=== PATIENT | female | born 1980 | race Caucasian/White ===

== ENCOUNTER → 2020-06-28 13:23 | Outpatient (CLI) | payer OTHER, SELFPAY ==
--- NOTE | ~2020-06-28 | MM_ITS ---
EXAMINATION: MM screening letitia BI w aguila HISTORY: Screening mammogram TECHNIQUE: Craniocaudal and mediolateral oblique 3-D tomosynthesis images were obtained and synthetic 2-D images were generated. CAD analysis was submitted and interpreted. COMPARISON: 06/17/2019 right diagnostic digital mammogram 06/06/2019 bilateral digital screening mammogram BREAST PARENCHYMAL COMPOSITION: The breasts are almost entirely fatty. FINDINGS: There is no evidence of suspicious mass, calcification, or architectural distortion to sugg est malignancy in either breast. There has been no suspicious interval change. IMPRESSION: 1. No mammographic evidence of malignancy. 2. Recommend routine screening mammography in one year. BI-RADS Category 1: Negative Reviewed, dictated and finalized at location A. PROCATING DRILL OPERATOR
== END ==
PROVIDERS: PCP Physician Assistant; Visit Provider Obstetrics & Gynecology
DX: Z12.31 Encounter for screening mammogram for malignant neoplasm of breast (principal)
CPT/HCPCS: 77063; 77067

== ENCOUNTER 2020-07-22 07:02 | Outpatient (NON) | payer OTHER, SELFPAY ==
[2020-07-22 22:01] LABS: SARS-CoV-2 RNA PCR Positive
== END 2020-07-22 07:03 ==
PROVIDERS: PCP Physician Assistant; Visit Provider Physician Assistant
DX: U07.1 COVID-19 (principal)
CPT/HCPCS: 87635; C9803; U0003

== ENCOUNTER → 2021-08-19 15:04 | Outpatient (CLI) | payer OTHER, SELFPAY ==
--- NOTE | ~2021-08-19 | CT_ITS ---
EXAMINATION: CT abdomen pelvis wo con DATE: 08/19/2021 15:21 INDICATION: Left flank pain TECHNIQUE: Computed tomography (CT) of the abdomen and pelvis was performed without intravenous contr ast. The dose-length product (DLP) was 1059.71 mGy-cm. Automated exposure control and iterative recon struction technique were employed. COMPARISON: 06/09/2019 FINDINGS: A calcified nodule of the left lower lobe is consistent with old granulomatous disease. Pun ctate calcifications in an otherwise normal spleen likely represent healed granulomatous disease. The gallbladder is surgically absent. The liver, pancreas, and adrenal glands are normal. The kidneys ar e unremarkable. No stones are identified in the kidneys, ureters, or bladder. There is no hydronephro sis or hydroureter. There is no free intraperitoneal gas or evidence of bowel obstruction. The append ix is normal. There is severe lumbar spondylosis at L5-S1. IMPRESSION: 1. No CT correlate for the patient's symptoms. No urolithiasis identified. Reviewed, dictated and finalized at location F. ACCEPTANCE TESTER
== END ==
PROVIDERS: PCP Physician Assistant; Visit Provider Physician Assistant
DX: R10.9 Unspecified abdominal pain (principal); M47.817 Spondylosis without myelopathy or radiculopathy, lumbosacral region
CPT/HCPCS: 74176

== ENCOUNTER 2023-07-10 12:27 | Emergency (ER) | payer OTHER, SELFPAY ==
--- NOTE | ~2023-07-10 | XR_ITS ---
EXAMINATION: XR chest 1V portable Exam Date/Time: 07/10/2023 19:19 CLOTHING WORKER HISTORY: palpitations Comparison: 12/03/2018. RESULT: Lines, tubes, and devices: None. Lungs and pleura: Clear. Cardiomediastinal silhouette: Stable. Other: No acute osseous or upper abdominal finding. IMPRESSION: No acute cardiopulmonary process. Reviewed, dictated and finalized at location K. HING WORKER
[2023-07-10 12:29] VITALS: BP 172/92; PULSE 90; RESP 16; TEMP 36.4; O2SAT 99
--- NOTE | 2023-07-10 12:30 | ECG_ITS ---
Measurements Intervals [place] Rate: 72 P: 55 ME: 140 QRS: 39 QRSD: 86 T: 41 QT: 393 QTc: 430 Interpretive Statements SINUS RHYTHM WITH MARKED RHYTHM IRREGULARITY, POSSIBLE NON-CONDUCTED PAC, SA BLOCK, AV BLOCK, OR SINUS PAUSE POSSIBLE LEFT ATRIAL ENLARGEMENT [-0.1mV P WAVE IN V1/V2] LOW QRS VOLTAGE IN PRECORDIAL LEADS [QRS DEFLECTION < 1.0 mV IN CHEST LEADS] ABNORMAL RHYTHM ECG COMPARED TO ECG 12/03/2018 20:52:17 NO SIGNIFICANT CHANGES Electronically Signed On 07-10-2023 13:37:32 [facility] NURSE PRACTITIONER by Shelly Stallings M.D.
[2023-07-10 14:45] VITALS: BP 150/88; PULSE 87; RESP 18; O2SAT 100
--- NOTE | 2023-07-10 14:59 | ED.GENADULT ---
HPI - General Adult General Chief complaint: Upper Respiratory Infection <KENYETTA Rai Last Filed: 07/10/23 15:18> Stated complaint: + Covid/heart skipping beat <KENYETTA Rai Last Filed: 07/10/23 15:18> Time Seen by Provider: 07/10/23 17:04 <KENYETTA Rai Last Filed: 07/10/23 15:18> Source: patient <KENYETTA Rai Last Filed: 07/10/23 15:18> Mode of arrival: ambulatory <KENYETTA Rai Last Filed: 07/10/23 15:18> Limitations: no limitations <KENYETTA Rai Last Filed: 07/10/23 15:18> History of Present Illness HPI narrative: Patient is a 43 y/o female who presents to the ED with c/o heart palpitations. Patient reports having URI sx's since last and had a positive home covid test on Sunday. She reports having a fluttering in her chest and into neck for the last 2 days. She states the palpitations were much more frequent today, occurring several times per minute. She notes she checked her radial pulse at that time and noted that she was skipping a beat each time the fluttering would occur. She then decided to be evaluated. Patient has had intermittent CP since her previous COVID infection 3 years ago. She has previously seen Dr. Yeager and had a negative stress test 6 months ago. Denies any current chest pain. Denies shortness of breath, [place], pleuritic pain. She notes she went to the gym today and did 30 minutes on the elliptical and did not feel short of breath or have CP at that time. No pain or swelling in legs. No dizziness/LH. No previous Hx of blood clots. <KENYETTA Rai Last Filed: 07/10/23 15:18> Patient is a 43 y/o female who presents to the ED with c/o heart palpitations. Patient reports having URI sx's since last (rhinorrhea and cough, no fevers) and had a positive home covid test on Sunday. She reports having a fluttering in her chest and into neck for the last 2 days. She states the palpitations were much more frequent today, occurring several times per minute. She notes she checked her radial pulse at that time and noted that she was skipping a beat each time the fluttering would occur. She then decided to be evaluated. Patient has had intermittent CP since her previous COVID infection 3 years ago. She has previously seen Dr. Yeager and had a negative stress test 6 months ago. Denies any current chest pain. Denies shortness of breath, [place], pleuritic pain. She notes she went to the gym today and did 30 minutes on the elliptical and did not feel short of breath or have CP at that time. No pain or swelling in legs. No dizziness/LH. No previous Hx of blood clots. She does note she has a history of anxiety at baseline and took 1/2 a Xanax with minimal change. Another home med is Buspar. She has also been taking ibuprofen. PCP Mary Garnica. <Lexi Urbina MD - Last Filed: 07/12/23 19:11> Related Data Allergies/adverse reactions: Allergies Allergy/AdvReac Type Severity Reaction Status Date / Time No Known Allergies Allergy Unverified 06/27/19 08:10 <Grace Wynne PA-C - Last Filed: 07/10/23 15:18> Review of Systems Review of Systems: CONSTITUTIONAL: Denies fever, chills, or sweats. ENT: See HPI. CARDIOVASCULAR: See HPI. RESPIRATORY: See HPI. GASTROINTESTINAL: Denies abdominal pain, nausea, vomiting, or diarrhea. MUSCULOSKELETAL: Denies back pain, joint pain, or myalgia. NEUROLOGIC: Denies headache, numbness, or weakness. <Grace Wynne PA-C - Last Filed: 07/10/23 15:18> All systems reviewed & are unremarkable except as noted in HPI and below <Grace Wynne PA-C - Last Filed: 07/10/23 15:18> [facility] Past Medical History Medical History: Medical History (Updated 07/12/23 @ 18:43 by Lexi Urbina MD) Anxiety COVID 2020 and July 2023 Palpitations <Grace Wynne PA-C - Last Filed:
[2023-07-10 15:21] LABS: Basophils Absolute Auto 0.1 K/mm3 (0.0-0.1); Basophils Percent Auto 0.7 % (0.2-1.2); Eosinophils Absolute Auto 0.6 K/mm3 (0-0.3); Eosinophils Percent Auto 7.7 % (0-4.4); Hematocrit 38.5 % (37.0-47.0); Hemoglobin 12.5 g/dL (12.0-15.0); Immature Granulocyte Absolute 0.04 K/mm3 (0.00-0.031); Immature Granulocyte Percent A 0.5 % (0-0.5); Lymphocytes Absolute Auto 1.55 K/mm3 (0.9-3.2); Lymphocytes Percent Auto 20.5 % (18.3-44.2); Mean Corpuscular HGB Conc 32.5 g/dl (32-36); Mean Corpuscular Hemoglobin 27.8 pg (26-34); Mean Corpuscular Volume 85.7 fl (80-100); Mean Platelet Volume 9.5 fl (7.4-10.4); Monocytes Absolute Auto 0.5 K/mm3 (0.1-0.6); Monocytes Percent Auto 6.2 % (2.6-8.5); Neutrophils Absolute Auto 4.9 K/mm3 (1.3-6.7); Neutrophils Percent Auto 64.4 % (45.5-73.1); Platelet Count Result 234 k/mm3 (150-375); Red Blood Count 4.49 M/mm3 (4.2-5.4); Red Cell Distribution Width 12.9 % (11.5-14.5); White Blood Count 7.6 K/mm3 (4.5-10.0)
[2023-07-10 15:51] LABS: Troponin I < 0.012 ng/mL (0.000-0.034)
[2023-07-10 16:19] LABS: Alanine Aminotransferase 24 U/L (6-35); Albumin Level 4.2 g/dL (3.5-5.1); Alkaline Phosphatase 81 U/L (38-126); Anion Gap 8 mmol/L (8-16); Aspartate Amino Transferase 24 U/L (14-36); Bilirubin,Total 0.5 mg/dL (0.2-1.3); Blood Urea Nitrogen 17 mg/dL (7-17); Calcium 9.1 mg/dL (8.4-10.2); Carbon Dioxide 26 mmol/L (22-30); Chloride 103 mmol/L (98-107); Estimated CRCL calculation 117 ml/min; Estimated Glomerular Filt Rate > 60; Glucose 97 mg/dL (65-110); Magnesium 1.9 mg/dL (1.6-2.3); Potassium 4.2 mmol/L (3.4-5.0); Sodium 137 mmol/L (137-145)
[2023-07-10 16:45] VITALS: BP 136/92; PULSE 66; RESP 17; O2SAT 100
[2023-07-10 17:31] VITALS: BP 148/100; PULSE 74; RESP 16; O2SAT 100
[2023-07-10 19:07] VITALS: BP 148/102; PULSE 88; RESP 24; TEMP 37; O2SAT 97
[2023-07-10 20:23] VITALS: BP 146/102; PULSE 72; RESP 16; TEMP 36.6; O2SAT 98
== END 2023-07-10 20:24 | disposition home or self-care (01) ==
PROVIDERS: Physician Assistant; Emergency Provider Student in an Organized Health Care Education/Training Program; PCP Physician Assistant
DX: I49.9 Cardiac arrhythmia, unspecified (principal); F41.9 Anxiety disorder, unspecified
CPT/HCPCS: 36415; 71045; 80053; 83735; 84484; 85025; 93005; 99284

== ENCOUNTER → 2023-07-26 10:23 | Outpatient (CLI) | payer OTHER, SELFPAY ==
--- NOTE | ~2023-07-26 | MM_ITS ---
EXAMINATION: MM screening letitia BI w aguila HISTORY: Screening mammogram TECHNIQUE: Craniocaudal and mediolateral oblique 3-D tomosynthesis images were obtained and synthetic 2-D images were generated. CAD analysis was submitted and interpreted. COMPARISON: 06/28/2020 bilateral screening mammogram 06/17/2019 diagnostic right mammogram 06/06/2019 bilateral screening mammogram BREAST PARENCHYMAL COMPOSITION: The breasts are almost entirely fatty. FINDINGS: There is no evidence of suspicious mass, calcification, or architectural distortion to sugg est malignancy in either breast. There has been no suspicious interval change. IMPRESSION: 1. No mammographic evidence of malignancy. 2. Recommend routine screening mammography in one year. BI-RADS Category 1: Negative Reviewed, dictated and finalized at location A. L CONCIERGE
== END ==
PROVIDERS: PCP Physician Assistant; Visit Provider Physician Assistant
DX: Z12.31 Encounter for screening mammogram for malignant neoplasm of breast (principal)
CPT/HCPCS: 77063; 77067

== ENCOUNTER 2025-05-15 12:30 | Outpatient (CLI) | payer OTHER, SELFPAY ==
--- NOTE | ~2025-05-15 | MM_ITS ---
EXAMINATION: MM screening letitia BI w aguila HISTORY: Screening TECHNIQUE: Craniocaudal and mediolateral oblique 3-D tomosynthesis images were obtained and synthetic 2-D images were generated. CAD analysis was submitted and interpreted. COMPARISON: 07/26/2023 BREAST PARENCHYMAL COMPOSITION: Not Dense: The breasts are almost entirely fatty. FINDINGS: There is no evidence of suspicious mass, calcification, or architectural distortion to suggest malignancy in either breast. [There has been no significant interval change. IMPRESSION: 1. No mammographic evidence of malignancy. Recommend routine screening mammography in one year. BI-RADS Category 1: Negative Reviewed, dictated, and finalized at Location A. Reviewed, dictated and finalized at location Q. IMPRESSION: 1. No mammographic evidence of malignancy. Recommend routine screening mammogra phy in one year. BI-RADS Category 1: Negative
== END 2025-05-15 12:31 | disposition home or self-care (01) ==
LOC: MICIMG 12:30
PROVIDERS: PCP Physician Assistant; Visit Provider Physician Assistant
DX: Z12.31 Encounter for screening mammogram for malignant neoplasm of breast (principal)
CPT/HCPCS: 77063; 77067